=== PATIENT | male | born 1990 | race Caucasian/White ===

== ENCOUNTER 2021-06-03 17:15 | Emergency (ER) | payer OTHER ==
[~2021-06-03] VITALS: Ht 154.9 cm; Wt 99.8 kg
[2021-06-03] MEDS ORDERED: SODIUM CHLORIDE 0.9% 1000ML 1,000 ML IV STA (17:54)
[2021-06-03] MEDS ORDERED: IOPAMIDOL 370 MG/ML 200 ML INFUS..BTL INJ ONE (18:14)
[2021-06-03] MEDS ORDERED: SODIUM CHLORIDE 0.9% 50ML 50 ML ONE (18:14)
[2021-06-03 18:21] LABS: BASOPHILS # (AUTO) 0.1 (0.0-0.1); BASOPHILS % 0.7 % (0.0-1.0); EOSINOPHILS # (AUTO) 0.4 (0.0-0.4); EOSINOPHILS % 3.3 % (0.0-6.0); HEMATOCRIT 41.7 % (38.2-49.6); HEMOGLOBIN 13.8 g/dL (14.0-18.0); LYMPHOCYTES # (AUTO) 2.9 (1.0-3.2); LYMPHOCYTES % 24.5 % (18.0-39.1); MEAN CORPUSCULAR HEMOGLOBIN 29.6 pg (28-32); MEAN CORPUSCULAR HGB CONC 33.1 g/dL (31-35); MEAN CORPUSCULAR VOLUME 89.3 fL (81-99); MONOCYTES # (AUTO) 0.8 (0.2-0.8); MONOCYTES % 6.4 % (4.4-11.3); NEUTROPHILS # (AUTO) 7.7 (2.1-6.9); NEUTROPHILS % 64.2 % (38.7-80.0); PLATELET COUNT 372 x10e3/uL (140-360); RED BLOOD COUNT 4.67 x10e6/uL (4.3-5.7); RED CELL DISTRIBUTION WIDTH 12.8 % (11.7-14.4)
[2021-06-03 18:28] LABS: INR 0.86; PROTHROMBIN TIME 12.4 seconds (11.9-14.5)
[2021-06-03 18:29] LABS: PARTIAL THROMBOPLASTIN TIME 31.5 seconds (23.8-35.5)
[2021-06-03 18:34] LABS: ANION GAP 16.9 mmol/L (8-16); CALCIUM 9.7 mg/dL (8.4-10.2); CREATININE, SERUM 1.13 mg/dL (0.72-1.25); POTASSIUM 3.9 mmol/L (3.5-5.1)
[2021-06-03 19:07] VITALS: BP 132/82
[2021-06-03] MEDS ORDERED: PROAIR HFA INH8.5 GM INH (19:13)
== END 2021-06-03 19:05 | disposition home or self-care (01) ==
LOC: ER 17:18
DX: R06.02 Shortness of breath (principal); R05.9 Cough, unspecified
CPT/HCPCS: 36415; 71260; 80048; 84484; 85025; 85610; 85730; 93005; 99283; J7030; Q9967